=== PATIENT | male | born 1960 | race Two or more races ===

== ENCOUNTER → 2021-02-24 | Outpatient (CLI) | payer BC, OTHER ==
[~2021-02-24] MED LIST: ASPIRIN EC325 MG PO; DOXEPIN HCL25 MG PO; IBU600 MG PO; LOW DOSE ASPIRI81 MG PO; PERCOCET 10-321 EACH PO; ROXICODONE15 MG PO
[2021-02-24 14:07] LABS: HEMOGLOBIN 12.9 gm/dl (14.0-17.5); RED BLOOD COUNT 4.38 M/UL (4.20-5.50)
[2021-02-24 14:31] LABS: BUN/CREATININE RATIO 18 (0-10)
== END ==
LOC: OPSV2 09:00 → EDSTATUS 12:00 → OPSV2 12:00
PROVIDERS: Orthopaedic Surgery
DX: Z01.812 Encounter for preprocedural laboratory examination (principal); M17.10 Unilateral primary osteoarthritis, unspecified knee
CPT/HCPCS: 36415; 80048; 85025; 87081; 93005

== ENCOUNTER → 2021-03-08 | Outpatient (CLI) | payer BC, OTHER ==
[2021-03-08 13:33] LABS: BUN/CREATININE RATIO 14 (0-10)
== END ==
LOC: LAB 12:54
PROVIDERS: Orthopaedic Surgery
DX: Z01.812 Encounter for preprocedural laboratory examination (principal)
CPT/HCPCS: 36415; 80048; 86850; 86900; 86901

== ENCOUNTER 2021-03-09 08:21 | Day surgery (SDC) | payer BC, OTHER ==
[~2021-03-09] VITALS: Ht 193 cm; Wt 114.3 kg
[~2021-03-09 08:21] MED LIST changes: -ASPIRIN EC325 MG PO; -ROXICODONE15 MG PO
[2021-03-09] MEDS ORDERED: ASPIRIN EC325 MG PO (12:44)
[2021-03-09] MEDS ORDERED: ROXICODONE15 MG PO (12:44)
[2021-03-10 03:33] LABS: RED BLOOD COUNT 3.94 M/UL (4.20-5.50); WHITE BLOOD COUNT 10.8 K/UL (4.5-11.0)
[2021-03-10 04:01] LABS: BUN/CREATININE RATIO 19 (0-10)
--- NOTE | 2021-03-10 12:01 | NUR ---
HEMOVAC DRAIN PULLED WITH 100CC OF BLOODY DRAINAGE. PT. JAYE. WELL
== END 2021-03-10 13:33 | disposition home or self-care (01) ==
LOC: OR 08:21 → EDSTATUS 11:30 → M/S 18:41 → OR 03-10 13:33
PROVIDERS: Orthopaedic Surgery
DX: M17.0 Bilateral primary osteoarthritis of knee (principal); G89.18 Other acute postprocedural pain; Z79.82 Long term (current) use of aspirin; Z79.891 Long term (current) use of opiate analgesic; Z79.1 Long term (current) use of non-steroidal anti-inflammatories (NSAID); Z79.899 Other long term (current) drug therapy; Z20.822 Contact with and (suspected) exposure to COVID-19
CPT/HCPCS: 36415; 73560; 80048; 85027; 97110-GP-CQ; 97116-GP-CQ; 97161; 97165; 97535; C1776; J0690; J1100; J1170; J2001; J2250; J2405; J2704; J2795; J3010; J3370; J7120; U0002

== ENCOUNTER → 2021-03-24 | Outpatient (CLI) | payer BC, OTHER ==
[~2021-03-24] MED LIST changes: +ASPIRIN EC325 MG PO; +ROXICODONE15 MG PO
== END ==
LOC: US 12:00
DX: R22.41 Localized swelling, mass and lump, right lower limb (principal)
CPT/HCPCS: 93971

== ENCOUNTER → 2021-04-16 | Outpatient (CLI) | payer BC, OTHER | LOC: KOH-I 09:30 | DX: M14.671 Charcot's joint, right ankle and foot (principal); M19.072 Primary osteoarthritis, left ankle and foot | CPT/HCPCS: 73700 ==

== ENCOUNTER → 2021-09-06 | Outpatient (CLI) | payer BC | LOC: KOH-I 09:21 | DX: M89.572 Osteolysis, left ankle and foot (principal); R93.6 Abnormal findings on diagnostic imaging of limbs | CPT/HCPCS: 73718 ==

== ENCOUNTER → 2022-07-22 | Outpatient (CLI) | payer OTHER | LOC: KOH-I 12:08 | DX: M25.511 Pain in right shoulder (principal) | CPT/HCPCS: 73030 ==